=== PATIENT | female | born 1980 | race Caucasian/White ===

== ENCOUNTER 2018-08-30 07:56 | Day surgery (SDC) | payer OTHER ==
[2018-08-30] MEDS: NS 1,000 ML IV (08:21)
[2018-08-30] MEDS ORDERED: PROPOFOL 200 MG/20 ML VIAL As Ordered ×4 (09:27→09:57)
[2018-08-30] MEDS ORDERED: LIDOCAINE 2% INJ 100 MG/5 ML SDV (FOR ANES.) As Ordered (09:27)
== END 2018-08-30 10:49 | disposition home or self-care (01) ==
LOC: M OPP 10:49
DX: R05 Cough (principal)
CPT/HCPCS: 43235

== ENCOUNTER → 2018-11-23 | Outpatient (CLI) | payer OTHER ==
[~2018-11-23] MED LIST: CLOM50TA9 PO; COQ-30CA2 PO; IRON27TA2 PO; METHACHOLINE KIT (J7674) INH ONE; PRENTAB55 PO; PROBCAP4 PO; SYNT88TA2 PO; VITA200015 PO; VITA500T PO; VITA500T3 PO; VITA50TA43 PO; xyzal PO
--- NOTE | 2018-11-23 14:38 | PFTRPT ---
Site: [facility], [address] [place], [address] ID: [id number] Name: BRIAN NASH Visit Date: 11/23/2018 Second ID: [id number] Referring Doctor: Ruben Aburto MD Reviewing Doctor: Blair Martinez MD Radiation Oncology Manager: Dariela SALAZAR RRT Age: 38 : 1980 Sex: Female Race: Height: 66.00 Inches Weight: 140.00 Lbs BSA: 1.72 Order IDs: [id number] Requested Test(s): <RESP-PFT.BROCHOPROV> Diagnosis: R06.00 of albuterol for postbronchodilator. Review Status: Not Reviewed Pre-Bronch Post-Bronch Pred Actual %Pred Actual %Chng SPIROMETRY FVC (L) 3.96 2.52 63 2.46 -2 FEV1 (L) 3.24 2.12 65 2.07 -2 FEV1/FVC (%) 83 84 101 84 FEF 25% (L/sec) 5.71 4.71 82 5.56 18 FEF 50% (L/sec) 4.26 3.35 78 3.13 -6 FEF 75% (L/sec) 1.71 0.92 53 0.88 -4 FEF 25-75% (L/sec) 3.31 2.46 74 2.51 2 FEF Max (L/sec) 7.30 4.71 64 5.70 21 FIVC (L) 2.58 1.60 -38 FIF 50% (L/sec) 3.86 2.86 74 0.91 -68 FIF Max (L/sec) 2.88 2.43 -15 Expiratory Time (sec) 6.79 3.92 -42 Back Extrap Vol (L) 0.14 0.08 -43 Time To FEFmax (sec) 0.136 0.087 -36
== END ==
LOC: M CARPUL 08:26
PROVIDERS: ATTEND Allergy & Immunology Allergy
DX: R06.00 Dyspnea, unspecified (principal)
CPT/HCPCS: 94070; J7674

== ENCOUNTER → 2018-12-18 | Outpatient (CLI) | payer OTHER ==
[~2018-12-18] MED LIST changes: -METHACHOLINE KIT (J7674) INH ONE
[2018-12-18 19:42] LABS: C REACTIVE PROTEIN QUANTITATIV < 0.30 MG/DL (0.00-0.30); FREE T4 0.94 NG/DL (0.76-1.46); THYROID STIMULATING HORMONE 0.726 uIU/ML (0.358-3.740)
[2018-12-21 00:07] LABS: VITAMIN D 1,25 DIHYDROXY 85.1 pg/mL (19.9-79.3)
[2018-12-22 14:24] LABS: ANTI MULLERIAN HORMONE 0.934 ng/mL (.)
== END ==
LOC: M LRY 09:03
PROVIDERS: ATTEND Obstetrics & Gynecology
DX: N97.9 Female infertility, unspecified (principal)

== ENCOUNTER → 2018-12-25 | Outpatient (CLI) | payer OTHER ==
[2018-12-25 12:25] LABS: HEMATOCRIT 41.6 % (36.0-47.0); HEMOGLOBIN 14.5 g/dl (12.0-15.5); MEAN CORPUSCULAR HEMOGLOBIN 29.5 pg (27.0-33.0); MEAN CORPUSCULAR HGB CONC 34.9 g/dl (32.0-36.5); MEAN CORPUSCULAR VOLUME 84.7 fl (80.0-96.0); PLATELET COUNT, AUTOMATED 333 10^3/uL (150-450); RED BLOOD COUNT 4.91 10^6/uL (4.00-5.40); WHITE BLOOD COUNT 6.4 10^3/uL (4.0-10.0)
[2018-12-25 12:37] LABS: ALBUMIN 3.9 GM/DL (3.2-5.2); ALT/SGPT 35 U/L (12-78); BILIRUBIN,TOTAL 0.6 MG/DL (0.2-1.0); BLOOD UREA NITROGEN 12 MG/DL (7-18); CALCIUM LEVEL 8.7 MG/DL (8.5-10.1); CARBON DIOXIDE LEVEL 25 MEQ/L (21-32); CHLORIDE LEVEL 111 MEQ/L (98-107); CREATININE FOR GFR 0.73 MG/DL (0.55-1.30); GLOMERULAR FILTRATION RATE > 60.0 (>60); GLUCOSE, FASTING 88 MG/DL (70-100); HCG, SERUM QUANTITATIVE < 1.0 MIU/ML; POTASSIUM SERUM 4.6 MEQ/L (3.5-5.1); SODIUM LEVEL 143 MEQ/L (136-145); TOTAL PROTEIN 6.5 GM/DL (6.4-8.2)
[2018-12-26 10:31] LABS: TOTAL 25(OH) VITAMIN D 67.8 NG/ML (30.0-100.0)
[2018-12-26 10:32] LABS: TESTOSTERONE 18 NG/DL (14-76)
[2018-12-26 10:34] LABS: ESTRADIOL 37.6 PG/ML; LUTEINIZING HORMONE 2.7 mIU/mL; PROLACTIN 7.6 NG/ML
[2018-12-26 10:35] LABS: FOLLICLE STIMULATING HORMONE 13.6 mIU/mL
[2018-12-26 11:15] LABS: HIV 1&2 SCREEN CENTAUR NEGATIVE (NEGATIVE)
[2018-12-26 12:00] LABS: RUBELLA IgG QUALITATIVE IMMUNE (IMMUNE)
[2018-12-26 12:01] LABS: HEPATITIS B SURFACE ANTIGEN NEGATIVE (NEGATIVE)
[2018-12-31 00:07] LABS: ANTI MULLERIAN HORMONE 0.961 ng/mL (.)
== END ==
LOC: M LRY 09:10
PROVIDERS: ATTEND Obstetrics & Gynecology Reproductive Endocrinology
DX: E28.9 Ovarian dysfunction, unspecified (principal)

== ENCOUNTER → 2018-12-25 | Outpatient (CLI) | payer OTHER ==
[2018-12-25 12:25] LABS: BASO % 0.5 % (0.0-1.0); EOS # 0.1 10^3/uL (0.0-0.50); EOS % 2.5 % (0.0-3.0); HEMATOCRIT 40.9 % (36.0-47.0); HEMOGLOBIN 14.1 g/dl (12.0-15.5); LYMPH # 2.1 10^3/uL (1.5-4.5); LYMPH % 36.7 % (24.0-44.0); MEAN CORPUSCULAR HEMOGLOBIN 29.6 pg (27.0-33.0); MEAN CORPUSCULAR HGB CONC 34.5 g/dl (32.0-36.5); MEAN CORPUSCULAR VOLUME 85.7 fl (80.0-96.0); MONO # 0.3 10^3/uL (0.0-0.8); MONO % 5.9 % (0.0-5.0); NEUTROPHILS % 54.2 % (36.0-66.0); PLATELET COUNT, AUTOMATED 283 10^3/uL (150-450); RED BLOOD COUNT 4.77 10^6/uL (4.00-5.40); WHITE BLOOD COUNT 5.6 10^3/uL (4.0-10.0)
[2018-12-25 12:36] LABS: ALBUMIN 3.8 GM/DL (3.2-5.2); ALT/SGPT 34 U/L (12-78); BILIRUBIN,TOTAL 0.6 MG/DL (0.2-1.0); BLOOD UREA NITROGEN 10 MG/DL (7-18); CALCIUM LEVEL 8.6 MG/DL (8.5-10.1); CARBON DIOXIDE LEVEL 23 MEQ/L (21-32); CHLORIDE LEVEL 112 MEQ/L (98-107); CREATININE FOR GFR 0.69 MG/DL (0.55-1.30); FREE T3 2.4 PG/ML (2.2-4.0); FREE T4 1.07 NG/DL (0.76-1.46); GLOMERULAR FILTRATION RATE > 60.0 (>60); GLUCOSE, FASTING 88 MG/DL (70-100); POTASSIUM SERUM 4.6 MEQ/L (3.5-5.1); SODIUM LEVEL 143 MEQ/L (136-145); TOTAL PROTEIN 6.5 GM/DL (6.4-8.2)
[2018-12-26 10:30] LABS: THYROID PEROXIDASE ANTIBODY < 28.0 U/ML (<60.0)
[2018-12-27 14:48] LABS: TISSUE TRANSGLUTAMINASE IgA <2 U/mL (0-3); TISSUE TRANSGLUTAMINASE IgG <2 U/mL (0-5); UNITSIGA FOR GLIADIN IGA 2 units (0-19); UNITSIGG FOR GLIADIN IGG 3 units (0-19)
[2018-12-28 00:08] LABS: ANTI DOUBLE STRAND-DNA AB 1 IU/mL (0-9); ANTINUCLEAR ANTIBODIES DIRECT Positive (Negative); Lyme Disease IgG/IgM Antibodie <0.91 ISR (0.00-0.90); Lyme Disease IgM Ab Quantitati <0.80 index (0.00-0.79); RNP ANTIBODIES <0.2 AI (0.0-0.9); SJOGREN'S ANTI SS-A <0.2 AI (0.0-0.9); SJOGREN'S ANTI SS-B <0.2 AI (0.0-0.9); SMITH ANTIBODIES <0.2 AI (0.0-0.9)
== END ==
LOC: M LRY 09:24
PROVIDERS: ATTEND Physician Assistant
DX: R53.83 Other fatigue (principal)